=== PATIENT | male | born 1950 | race Native Hawaiian/Other Pacific Islander ===

== ENCOUNTER 2017-04-25 07:25 | Day surgery (SDC) | payer MEDICARE ==
[2017-04-11 13:49] VITALS: BMI 19.5
[~2017-04-25 07:25] MED LIST: Lactated Ringer's 500 ML IV ONE; Phenylephrine 2.5% Opht Soln OD SCH; Tropicamide 1% Opht SOLUTION OD SCH
[2017-04-25] MEDS ORDERED: Tetracaine 0.5% Ophth (OR ONLY) ONE (07:36)
[2017-04-25] MEDS ORDERED: Lidocaine 2% Inj (20ml) ONE (07:36)
[2017-04-25] MEDS ORDERED: Carbachol 0.01% IO ONE (07:36)
[2017-04-25] MEDS ORDERED: Povidone Iodine Ophthalmic 5% Soln ONE (07:36)
[2017-04-25] MEDS ORDERED: Hyaluronidase Human, Recombi 150 U/ML VIAL ONE (07:37)
[2017-04-25] MEDS ORDERED: Chondroitin/Hyaluronate Opth Syringe KIT (0.55 ml-0.5 ml) IO ONE (07:37)
[2017-04-25] MEDS ORDERED: Lactated Ringer's 1,000 ML IV ONE (08:23)
[2017-04-25] MEDS ORDERED: Propofol 10 mg/ml Inj (20 ML) ONE (09:34)
[2017-04-25] MEDS ORDERED: Midazolam 2 MG/2 ML VIAL ONE ×2 (09:34→09:45)
[2017-04-25] MEDS ORDERED: Tobramycin/Dexamethasone OPHT OINT ONE (09:56)
[2017-04-25 13:42] VITALS: TEMP 97.7
[2017-04-25 13:43] VITALS: O2SAT 100
[2017-04-25 13:44] VITALS: PULSE 70
[2017-04-25 14:00] VITALS: BP 127/77; RESP 22
--- NOTE | 2017-05-07 11:39 | OP ---
PROCEDURE DATE: 04/25/2017 PREOPERATIVE DIAGNOSIS: Matured cataract, right eye. POSTOPERATIVE DIAGNOSIS: Matured cataract, right eye. OPERATIVE PROCEDURE: Cataract extraction with lens implant, right eye. ATTENDING: Raffi Lai MD ANESTHESIA: Retrobulbar block. ESTIMATED BLOOD LOSS: 0 mL. COMPLICATIONS: None. DESCRIPTION OF PROCEDURE: The patient was brought to the operating room and properly identified. Anesthesia staff administered intravenous sedation and retrobulbar block was given to the surgical eye. The patient was then prepped and draped in the usual sterile fashion. Attention was turned to the surgical eye. A lid speculum was placed into interpalpebral fissure. Sitting temporally, two paracentesis incisions were made. The anterior chamber was filled with viscoelastic and a triplanar clear corneal incision was made. Using a cystitome, anterior capsular leaflet was created. Utrata forceps were used to create a continuous curvilinear capsulorrhexis. Balanced salt solution on a cannula was used to hydrodissect and hydrodelineate the lens. The lens was then phacoemulsified with no complications. Automated irrigation and aspiration was used to remove the cortex. Viscoelastic was used to deepen the anterior chamber. The lens was placed in the capsular bag. Automated irrigation and aspiration was used to remove the viscoelastic. The anterior chamber was filled with Miochol. The wounds were hydrated with balanced salt solution. There was noted to be no leak at the end of the case and the lens was well positioned. The lid speculum was removed. The eye was given antibiotics and steroids and covered with a patch and shield. The patient was returned to the recovery room in stable condition.
--- NOTE | 2017-05-07 13:52 | PCM.OP ---
Operative Report - Operative Report Date of Surgery/Procedure: 04/25/17 Surgeon: Joelle Nugent Anesthesia/Sedation: Retrobulbar block Pre-Operative Diagnosis: Nuclear cataract right eye Post-Operative Diagnosis: Nuclear cataract right eye Procedure/Operation Description: Cataract extraction with lens implant of right eye. Cataract dictation number 1.
== END 2017-04-25 11:11 | disposition home or self-care (01) ==
LOC: C.SDS 07:25
PROVIDERS: ATTEND Ophthalmology
DX: H25.11 Age-related nuclear cataract, right eye (principal)
CPT/HCPCS: 66984; 82948; J2001; J2250; J2704; J3470; J7120; V2632